=== PATIENT | male | born 1995 | race Caucasian/White ===

== ENCOUNTER 2018-09-16 19:52 | Emergency (ER) | payer SELFPAY ==
[2018-09-16] MEDS: ONDANSETRON 4 MG INJ IV (21:19)
[2018-09-16] MEDS: HYDROmorphONE 1 MG/ML SYG IV (21:19)
[2018-09-16] MEDS: SOD CHLORIDE 0.9% 1,000 ML IV (21:19)
[2018-09-16 21:22] LABS: ADD MAN DIFF? NO
[2018-09-16 21:30] LABS: WHITE BLOOD COUNT 4.8 10^3/ul (4.8-10.8)
[2018-09-16 21:30] LABS: ABNORMAL IP MESSAGE 1; BASOPHILS % 0.8 % (0.0-2.0); EOSINOPHILS # 0.1 10^3/ul (0.0-0.5); EOSINOPHILS % 2.3 % (0.0-7.0); HEMATOCRIT 35.6 % (42.0-52.0); HEMOGLOBIN 11.9 g/dl (14.0-18.0); LYMPHOCYTES # 1.6 10^3/ul (0.8-2.9); LYMPHOCYTES % 32.6 % (15.0-51.0); MEAN CORPUSCULAR HEMOGLOBIN 24.1 pg (29.0-33.0); MEAN CORPUSCULAR HGB CONC 33.4 g/dl (32.0-37.0); MEAN CORPUSCULAR VOLUME 72.1 fl (82.0-101.0); MEAN PLATELET VOLUME 10.8 fl (7.4-10.4); MONOCYTE # 0.4 10^3/ul (0.3-0.9); MONOCYTES % 8.6 % (0.0-11.0); NEUTROPHIL # 2.7 10^3/ul (1.6-7.5); NEUTROPHILS % 55.5 % (39.0-77.0); PLATELET COUNT 156 10^3/UL (140-415); POSITIVE DIFF @See below; RED BLOOD COUNT 4.94 10^6/ul (4.70-6.10); RED CELL DISTRIBUTION WIDTH 17.1 % (11.5-14.5); RETICULOCYTE COUNT # 0.066 X10^6 (0.020-0.110); RETICULOCYTE COUNT % 1.3 % (0.5-1.5); RETICULOCYTE RBC 4.94
[2018-09-16 21:50] LABS: ANION GAP 8 (5-13); BLOOD UREA NITROGEN 12 mg/dl (7-20); CALCIUM 10.2 mg/dl (8.4-10.2); CARBON DIOXIDE 26 mmol/L (21-31); CHLORIDE 107 mmol/L (97-110); CREATININE 1.19 mg/dl (0.61-1.24); Estimated GFR > 60 mL/min (>60); GLUCOSE 89 mg/dl (70-220); POTASSIUM 4.1 mmol/L (3.5-5.1); SODIUM 141 mmol/L (135-144)
[2018-09-16] MEDS: HYDROmorphONE 2 MG/ML SYG IV (22:41)
== END 2018-09-16 23:20 | disposition home or self-care (01) ==
LOC: E/R 19:52
DX: D57.00 Hb-SS disease with crisis, unspecified (principal); R07.9 Chest pain, unspecified
CPT/HCPCS: 36415; 71045; 80048; 85025; 85045; 85660; 93005; 96374; 96375; 96376; 99285-25

== ENCOUNTER 2018-09-21 08:55 | Emergency (ER) | payer SELFPAY ==
[2018-09-21 09:52] LABS: ADD MAN DIFF? NO
[2018-09-21 09:59] LABS: WHITE BLOOD COUNT 3.9 10^3/ul (4.8-10.8)
[2018-09-21 09:59] LABS: ABNORMAL IP MESSAGE 1; BASOPHILS % 0.5 % (0.0-2.0); EOSINOPHILS # 0.1 10^3/ul (0.0-0.5); EOSINOPHILS % 1.5 % (0.0-7.0); HEMATOCRIT 34.8 % (42.0-52.0); HEMOGLOBIN 11.6 g/dl (14.0-18.0); LYMPHOCYTES # 1.3 10^3/ul (0.8-2.9); LYMPHOCYTES % 33.2 % (15.0-51.0); MEAN CORPUSCULAR HEMOGLOBIN 24.2 pg (29.0-33.0); MEAN CORPUSCULAR HGB CONC 33.3 g/dl (32.0-37.0); MEAN CORPUSCULAR VOLUME 72.7 fl (82.0-101.0); MEAN PLATELET VOLUME 11.1 fl (7.4-10.4); MONOCYTE # 0.3 10^3/ul (0.3-0.9); MONOCYTES % 6.7 % (0.0-11.0); NEUTROPHIL # 2.2 10^3/ul (1.6-7.5); NEUTROPHILS % 57.8 % (39.0-77.0); PLATELET COUNT 165 10^3/UL (140-415); POSITIVE DIFF @See below; RED BLOOD COUNT 4.79 10^6/ul (4.70-6.10); RED CELL DISTRIBUTION WIDTH 16.9 % (11.5-14.5); RETICULOCYTE COUNT # 0.081 X10^6 (0.020-0.110); RETICULOCYTE COUNT % 1.7 % (0.5-1.5); RETICULOCYTE RBC 4.79
[2018-09-21] MEDS: ONDANSETRON 4 MG INJ IV (10:09)
[2018-09-21] MEDS: KETOROLAC 15 MG INJ IV (10:09)
[2018-09-21] MEDS: SOD CHLORIDE 0.9% 1,000 ML IV (10:09)
[2018-09-21 10:10] LABS: ANION GAP 8 (5-13); BLOOD UREA NITROGEN 7 mg/dl (7-20); CALCIUM 9.9 mg/dl (8.4-10.2); CARBON DIOXIDE 26 mmol/L (21-31); CHLORIDE 109 mmol/L (97-110); CREATININE 0.94 mg/dl (0.61-1.24); Estimated GFR > 60 mL/min (>60); GLUCOSE 98 mg/dl (70-220); POTASSIUM 4.1 mmol/L (3.5-5.1); SODIUM 143 mmol/L (135-144)
[2018-09-21] MEDS: HYDROmorphONE 0.5 MG/0.5 ML SYG IV ×2 (10:10→11:11)
== END 2018-09-21 12:11 | disposition home or self-care (01) ==
LOC: E/R 08:55
DX: D57.00 Hb-SS disease with crisis, unspecified (principal); D72.819 Decreased white blood cell count, unspecified; D64.9 Anemia, unspecified; R07.9 Chest pain, unspecified
CPT/HCPCS: 71045; 80048; 85025; 85045; 96374; 96375; 96376; 99284-25

== ENCOUNTER 2018-10-05 09:48 | Emergency (ER) | payer SELFPAY ==
[2018-10-05] MEDS: HYDROmorphONE 0.5 MG/0.5 ML SYG IV ×2 (10:13→11:01)
[2018-10-05] MEDS: ONDANSETRON 4 MG INJ IV (10:14)
[2018-10-05] MEDS: SOD CHLORIDE 0.9% 1,000 ML IV (10:14)
== END 2018-10-05 11:45 | disposition home or self-care (01) ==
LOC: E/R 09:48
DX: D57.1 Sickle-cell disease without crisis (principal)
CPT/HCPCS: 96374; 96375; 96376; 99284-25

== ENCOUNTER 2018-10-09 07:51 | Emergency (ER) | payer SELFPAY ==
[2018-10-09] MEDS: ONDANSETRON 4 MG INJ IV ×3 (08:32→10:26)
[2018-10-09] MEDS: SOD CHLORIDE 0.9% 1,000 ML IV (08:32)
[2018-10-09] MEDS: HYDROmorphONE 1 MG/ML SYG IV ×3 (08:32→10:26)
== END 2018-10-09 10:56 | disposition home or self-care (01) ==
LOC: E/R 07:51
DX: D57.00 Hb-SS disease with crisis, unspecified (principal)
CPT/HCPCS: 96374; 96375; 96376; 99284-25

== ENCOUNTER 2018-10-17 11:09 | Emergency (ER) | payer SELFPAY ==
[2018-10-17 12:08] LABS: ADD MAN DIFF? NO
[2018-10-17 12:11] LABS: WHITE BLOOD COUNT 4.5 10^3/ul (4.8-10.8)
[2018-10-17 12:11] LABS: ABNORMAL IP MESSAGE 1; BASOPHILS % 0.7 % (0.0-2.0); EOSINOPHILS # 0.1 10^3/ul (0.0-0.5); EOSINOPHILS % 1.6 % (0.0-7.0); HEMATOCRIT 35.3 % (42.0-52.0); HEMOGLOBIN 11.8 g/dl (14.0-18.0); LYMPHOCYTES # 1.4 10^3/ul (0.8-2.9); LYMPHOCYTES % 31.6 % (15.0-51.0); MEAN CORPUSCULAR HEMOGLOBIN 24.3 pg (29.0-33.0); MEAN CORPUSCULAR HGB CONC 33.4 g/dl (32.0-37.0); MEAN CORPUSCULAR VOLUME 72.6 fl (82.0-101.0); MEAN PLATELET VOLUME 10.6 fl (7.4-10.4); MONOCYTE # 0.3 10^3/ul (0.3-0.9); MONOCYTES % 6.9 % (0.0-11.0); NEUTROPHIL # 2.7 10^3/ul (1.6-7.5); PLATELET COUNT 170 10^3/UL (140-415); POSITIVE DIFF @See below; RED BLOOD COUNT 4.86 10^6/ul (4.70-6.10); RED CELL DISTRIBUTION WIDTH 16.1 % (11.5-14.5); RETICULOCYTE COUNT # 0.107 X10^6 (0.020-0.110); RETICULOCYTE COUNT % 2.2 % (0.5-1.5); RETICULOCYTE RBC 4.86
[2018-10-17] MEDS: HYDROmorphONE 1 MG/ML SYG IV ×2 (12:14→13:36)
[2018-10-17] MEDS: ONDANSETRON 4 MG INJ IV ×2 (12:14→13:31)
[2018-10-17] MEDS: DIPHENHYDRAMINE 50 MG INJ IV (12:14)
[2018-10-17 12:34] LABS: ALANINE AMINOTRANSFERASE 27 IU/L (13-69); ALBUMIN 4.5 g/dl (3.3-4.9); ALKALINE PHOSPHATASE 75 IU/L (42-121); ANION GAP 7 (5-13); ASPARTATE AMINO TRANSFERASE 26 IU/L (15-46); BILIRUBIN,INDIRECT 1.6 mg/dl (0-1.1); BILIRUBIN,TOTAL 1.6 mg/dl (0.2-1.3); BLOOD UREA NITROGEN 5 mg/dl (7-20); CALCIUM 9.7 mg/dl (8.4-10.2); CARBON DIOXIDE 25 mmol/L (21-31); CHLORIDE 109 mmol/L (97-110); Estimated GFR > 60 mL/min (>60); GLUCOSE 102 mg/dl (70-220); SODIUM 141 mmol/L (135-144); TOTAL PROTEIN 7.7 g/dl (6.1-8.1)
== END 2018-10-17 14:10 | disposition home or self-care (01) ==
LOC: E/R 11:09
DX: D57.219 Sickle-cell/Hb-C disease with crisis, unspecified (principal)
CPT/HCPCS: 36415; 80053; 85025; 85045; 96374; 96375; 96376; 99284-25

== ENCOUNTER 2018-12-04 00:46 | Emergency (ER) | payer SELFPAY, OTHER ==
[2018-12-04] MEDS: SOD CHLORIDE 0.9% 1,000 ML IV ×2 (02:18→03:20)
[2018-12-04] MEDS: ONDANSETRON 4 MG INJ IV ×2 (02:18→03:19)
[2018-12-04 02:19] LABS: ADD MAN DIFF? NO
[2018-12-04] MEDS: HYDROmorphONE 1 MG/ML SYG IV ×2 (02:19→03:19)
[2018-12-04 02:22] LABS: WHITE BLOOD COUNT 3.8 10^3/ul (4.8-10.8)
[2018-12-04 02:22] LABS: BASOPHILS % 0.5 % (0.0-2.0); HEMATOCRIT 36.3 % (42.0-52.0); HEMOGLOBIN 12.1 g/dl (14.0-18.0); LYMPHOCYTES # 0.9 10^3/ul (0.8-2.9); LYMPHOCYTES % 23.9 % (15.0-51.0); MEAN CORPUSCULAR HGB CONC 33.3 g/dl (32.0-37.0); MEAN PLATELET VOLUME 11.6 fl (7.4-10.4); MONOCYTE # 0.3 10^3/ul (0.3-0.9); MONOCYTES % 8.1 % (0.0-11.0); NEUTROPHIL # 2.5 10^3/ul (1.6-7.5); NEUTROPHILS % 66.2 % (39.0-77.0); PLATELET COUNT 171 10^3/UL (140-415); RED BLOOD COUNT 4.84 10^6/ul (4.70-6.10); RED CELL DISTRIBUTION WIDTH 14.5 % (11.5-14.5); RETICULOCYTE COUNT # 0.078 X10^6 (0.020-0.110); RETICULOCYTE COUNT % 1.6 % (0.5-1.5); RETICULOCYTE RBC 4.84
[2018-12-04 02:54] LABS: ALANINE AMINOTRANSFERASE 21 IU/L (13-69); ALBUMIN 4.6 g/dl (3.3-4.9); ALBUMIN/GLOBULIN RATIO 1.35; ALKALINE PHOSPHATASE 67 IU/L (42-121); ANION GAP 8 (5-13); ASPARTATE AMINO TRANSFERASE 32 IU/L (15-46); BILIRUBIN,INDIRECT 1.5 mg/dl (0-1.1); BILIRUBIN,TOTAL 1.5 mg/dl (0.2-1.3); BLOOD UREA NITROGEN 7 mg/dl (7-20); CALCIUM 9.7 mg/dl (8.4-10.2); CARBON DIOXIDE 27 mmol/L (21-31); CHLORIDE 106 mmol/L (97-110); CREATININE 0.94 mg/dl (0.61-1.24); Estimated GFR > 60 mL/min (>60); GLUCOSE 115 mg/dl (70-220); POTASSIUM 3.5 mmol/L (3.5-5.1); SODIUM 141 mmol/L (135-144)
[2018-12-04] MEDS: HYDROCODONE/APAP (10/325) TAB PO (04:10)
== END 2018-12-04 04:22 | disposition home or self-care (01) ==
LOC: E/R 00:46
DX: D57.00 Hb-SS disease with crisis, unspecified (principal)
CPT/HCPCS: 36415; 80053; 85025; 85045; 86850; 86900; 86901; 96374; 96375; 96376; 99284-25